=== PATIENT | male | born 1985 | race Caucasian/White ===

== ENCOUNTER 2019-09-08 16:00 | Outpatient (RCR) | payer BC, SELFPAY ==
[2019-08-12 09:54] VITALS: BMI 30.3
--- NOTE | 2019-08-28 15:01 | HP.PTEVAL ---
Patient's Visit Information ARI MANUEL is a 34 year old M referred to Physical Therapy by Brandy Chew DC with a diagnosis of Intervertebral disc disp. L/S. Date of Evaluation: 08/28/19 Physical Therapist: Levi Yanez, PT, ATC - Visit Plan Frequency: 1x/Week Duration: 2 Weeks Plan: Issue and instruct pt on HEP for L/S strengthening and stab ex's - Subjective Subjective: Pt reports he has had intermittent LBP for the last 1-2 years. Pt reports he usually gets pain and after seeing a chiropractor, the pain goes away. Pt reports he was putting his baby to bed when his LBP occured for this episode. Pt reports no R LE radiculopathy, but has severe pain this date. Pt notes he has had injections on the past, but wants to avoid that or surgery at this time. Pain is worse in his R LB. Pt has had an xray which revealed less spacing in his veribrae when comparing x rays from 10 years ago. Pt reports occasional sleep difficulty secondary to pain. Pt reports increased pain with fwd bending, lifting, and prolonged sitting. Pt reports walking helps it to feel better at times. 1/10 at rest, 10/10 at worst - Pain LBP Pain Intensity (Out of 10): 1 Pain Intensity Range: 10 - Objective Neuro: B LE sensation is WNL to light touch. B patellar reflex= 2/3. MMT: B LE's 5/5 throughout. L/S ROM: Pt is severely limited with flexion ROM. Pt is moderately limited with ROM in all other planes. Repeated movements: RFIS sig increases pain. REIL decreases pain - Goals Goal 1:: I with HEP Goal Time Frame: 2 Weeks - Rehabilitation Potential Physical Therapy Diagnosis: Pt has LBP, decreased L/S ROM, and difficulty with lifting activity secondary to L/S disc displacement Rehabilitation Potential: Good - Anticipated Interventions Patient/Client Instruction: Educate patient on: Condition, Plan of Care For the Purpose of:: To improve self management Therapeutic Exercise to Include: Strength training, Body mechanics, Postural training, Dynamic Lumbar Stabilization, [place] Exercises For the Purpose of:: To decrease pain, To increase ROM, To improve muscle performance and motor function Thank you for the opportunity to evaluate your patient. For Medicare and Medicare HMO plans, please review the plan of care and approve it. It will need to be FAXED BACK to us at [phone] for Medicare purposes. For Medicare only, by signing this I certify the plan of care. Please let me know if there are questions or concerns regarding this plan of care. Physician Signature: Date:
--- NOTE | 2020-01-07 13:07 | HP.PT.NRP ---
ARI Domenico MANUEL was seen in my office for initial evaluation on 08/28/19. The following Plan of Care was established for this patient: Initial Frequency: 1x/Week Initial Duration: 2 Weeks Patient/Client Instruction: Educate patient on: Condition, Plan of Care For the Purpose of:: To improve self management Therapeutic Exercise to Include: Strength training, Body mechanics, Postural training, Dynamic Lumbar Stabilization, Lincoln Exercises For the Purpose of:: To decrease pain, To increase ROM, To improve muscle performance and motor function This patient was last seen in our office . Pertinent comments regarding their Physical therapy will appear below: Pt was treated for 2 PT visits for LBP through 09/08/19. Pt has not returned through todays date and is discontinued at this time. At this point I will be discontinuing this patient from physical therapy. I would be happy to see this patient again in the future if found appropriate by the physician. Thank you! Levi Yanez, PT, ATC
== END 2019-09-08 19:00 | disposition home or self-care (01) ==
LOC: PT 16:00
PROVIDERS: PCP Family Medicine; Referring Provider Chiropractor; Visit Provider Chiropractor
DX: M51.26 Other intervertebral disc displacement, lumbar region (principal)
CPT/HCPCS: 97110; 97161

== ENCOUNTER → 2020-04-28 07:16 | Outpatient (CLI) | payer BC, SELFPAY ==
[2019-09-30 13:25] VITALS: BMI 30.3
--- NOTE | 2020-04-28 07:18 | MRI_ITS ---
STUDY: MRI LUMBAR SPINE WITHOUT CONTRAST REASON FOR EXAM: Male, 34 years old. low back pain, right side TECHNIQUE: Standardized fat and water weighted pulse sequences were obtained in the sagittal and axial planes. COMPARISON: X-ray dated 08/11/2019. FINDINGS: There is straightening of the normal lumbar lordosis. There is no substantial scoliosis. Normal conus medullaris that terminates at the T12. L1-2: Normal endplates. Normal disc height, hydration and morphology. Normal bilateral facet joints. Normal central canal and bilateral lateral recesses. Normal bilateral intervertebral neural foramina. L2-3: Normal endplates. Normal disc height, hydration and morphology. Normal bilateral facet joints. Normal central canal and bilateral lateral recesses. Normal bilateral intervertebral neural foramina. L3-4: There is minimal disc space narrowing and endplates spondylosis. There is mild disc bulge and facet atrophy without significant central canal or foraminal stenosis. L4-5: There is moderate disc space narrowing and endplates spondylosis. There is a approximately 1.0 x 1.7 x 1.2 cm central protrusion with moderate right lateral recess narrowing. There is mild central canal stenosis. There is no significant foraminal stenosis. L5-S1: There is minimal disc space narrowing and endplates spondylosis. There is a mild disc bulge with posterior annular fissure. There is mild right foraminal stenosis. There is no significant central canal stenosis or left foraminal stenosis. Normal visualized sacral ala. MRI/Spine Lumbar (Routine) IMPRESSION: L4/L5: Central protrusion with moderate right lateral recess narrowing. Electronically Signed: Romana Alan MD at 15:46 EST Tel , Service support ,
== END ==
PROVIDERS: PCP Student in an Organized Health Care Education/Training Program; Referring Provider Chiropractor; Visit Provider Chiropractor
DX: M51.26 Other intervertebral disc displacement, lumbar region (principal)
CPT/HCPCS: 72148

== ENCOUNTER 2021-06-08 07:21 | Outpatient (CLI) | payer BC, SELFPAY ==
--- NOTE | 2021-06-08 07:25 | MRI_ITS ---
STUDY: MRI RIGHT MIDFOOT REASON FOR EXAM: Pain in the fifth metatarsal diaphysis/base for 1.5 years, evaluate for stress fracture. TECHNIQUE: Standardized fat and water weighted pulse sequences were obtained in all 3 orthogonal planes. COMPARISON: None. FINDINGS: Normal talonavicular articulation. Normal calcaneocuboid articulation. Normal navicular-cuneiform articulations. Normal intercuneiform articulations. Normal first tarsometatarsal articulation. Normal Lisfranc ligament. Normal second and third tarsometatarsal articulations. Normal cuboid fourth and cuboid fifth tarsometatarsal articulation. Normal first through fifth metatarsals without bone edema or stress fracture of the fifth metatarsal. Normal tibialis anterior tendon. Normal extensor hallucis longus tendon. Normal extensor digitorum longus tendons. Normal peroneus longus tendon and distal insertion. Normal peroneus brevis tendon and distal insertion. Normal intrinsic muscles of the mid and forefoot region. Normal extensor digitorum brevis muscle. Normal subcutis adipose space. MRI/Lower Ext/No Jt/w/o IMPRESSION: Unremarkable MRI of the right midfoot without demonstrated fifth metatarsal stress fracture. Electronically Signed: John Tai MD at 8:56 EST ,
== END 2021-06-08 23:59 | disposition short-term general hospital (02) ==
PROVIDERS: PCP Student in an Organized Health Care Education/Training Program; Referring Provider Podiatrist Foot & Ankle Surgery; Visit Provider Podiatrist Foot & Ankle Surgery
DX: Z03.89 Encounter for observation for other suspected diseases and conditions ruled out (principal); M79.676 Pain in unspecified toe(s); G89.29 Other chronic pain
CPT/HCPCS: 73718